=== PATIENT | male | born 1965 | race Caucasian/White ===

== ENCOUNTER 2016-05-28 19:27 | Emergency (ER) | payer MEDICARE | END 2016-05-28 21:17 | disposition home or self-care (01) | LOC: D.ER 19:27 | DX: S89.91XA Unspecified injury of right lower leg, initial encounter (principal); W19.XXXA Unspecified fall, initial encounter; Y93.89 Activity, other specified; Y92.018 Other place in single-family (private) house as the place of occurrence of the external cause; S99.911A Unspecified injury of right ankle, initial encounter ==

== ENCOUNTER 2016-06-08 11:37 | Emergency (ER) | payer MEDICARE | END 2016-06-08 13:11 | disposition home or self-care (01) | LOC: D.ER 11:37 | DX: M54.12 Radiculopathy, cervical region (principal) ==

== ENCOUNTER 2016-06-12 16:31 | Emergency (ER) | payer MEDICARE | END 2016-06-12 17:19 | disposition home or self-care (01) | LOC: D.ER 16:31 | DX: M76.9 Unspecified enthesopathy, lower limb, excluding foot (principal) ==

== ENCOUNTER 2016-06-16 16:55 | Emergency (ER) | payer MEDICARE | END 2016-06-16 19:45 | disposition home or self-care (01) | LOC: D.ER 16:55 | DX: S16.1XXA Strain of muscle, fascia and tendon at neck level, initial encounter (principal); V49.9XXA Car occupant (driver) (passenger) injured in unspecified traffic accident, initial encounter; Y93.89 Activity, other specified; Y92.410 Unspecified street and highway as the place of occurrence of the external cause ==

== ENCOUNTER 2016-07-02 17:12 | Emergency (ER) | payer MEDICARE | END 2016-07-02 18:32 | disposition home or self-care (01) | LOC: D.ER 17:12 | DX: S40.011A Contusion of right shoulder, initial encounter (principal); W13.8XXA Fall from, out of or through other building or structure, initial encounter; Y93.89 Activity, other specified; Y92.019 Unspecified place in single-family (private) house as the place of occurrence of the external cause ==

== ENCOUNTER 2016-07-09 09:42 | Emergency (ER) | payer MEDICARE | END 2016-07-09 11:14 | disposition home or self-care (01) | LOC: D.ER 09:42 | DX: S68.411A Complete traumatic amputation of right hand at wrist level, initial encounter (principal); X58.XXXA Exposure to other specified factors, initial encounter; Y93.89 Activity, other specified; Y92.019 Unspecified place in single-family (private) house as the place of occurrence of the external cause ==

== ENCOUNTER 2016-07-15 13:31 | Emergency (ER) | payer MEDICARE | END 2016-07-15 14:40 | disposition home or self-care (01) | LOC: D.ER 13:31 | DX: L03.90 Cellulitis, unspecified (principal); W59.01XA Bitten by nonvenomous lizards, initial encounter; Y93.89 Activity, other specified; Y92.019 Unspecified place in single-family (private) house as the place of occurrence of the external cause ==

== ENCOUNTER 2016-07-17 18:22 | Emergency (ER) | payer MEDICARE | END 2016-07-17 20:20 | disposition home or self-care (01) | LOC: D.ER 18:22 | DX: L02.811 Cutaneous abscess of head [any part, except face] (principal) ==